=== PATIENT | female | born 1960 | race Caucasian/White ===

== ENCOUNTER 2020-10-15 13:01 | Outpatient (CLI) | payer OTHER | END 2020-10-15 13:02 | disposition home or self-care (01) | LOC: CSHMAMMO 13:01 | PROVIDERS: ATTEND Family Medicine | DX: Z12.31 Encounter for screening mammogram for malignant neoplasm of breast (principal) | CPT/HCPCS: 77063; 77067 ==

== ENCOUNTER 2021-08-13 12:38 | Inpatient (IN) | payer OTHER, SELFPAY ==
[2021-08-13 14:33] LABS: #Basophils 0.1 10x3/uL (0.0-0.2); #Eosinphils 0.1 10x3/uL (0.0-0.5); #Monocytes 0.6 10x3/uL (0.0-1.1); #Neutrophils 4.9 10x3/uL (1.5-8.4); %Basophils 0.8 % (0.0-2.0); %Eosinophils 1.2 % (0.0-6.0); %Monocytes 6.3 % (0.0-10.0); %Neutrophils 55.2 % (40.0-75.0); Mean Corpuscular HGB CONC 32.9 g/dL (32.0-36.0); Mean Corpuscular Hemoglobin 32.2 pg (27.0-33.0); Mean Corpuscular Volume 97.9 fl (81.6-98.3); Mean Platelet Volume 10.7 fl (7.4-10.4); Platelet Count 217 10x3/uL (150-450); RBC Distribution Width 13.5 % (11.5-14.5); Red Blood Cell (RBC) Count 4.66 10x6/uL (3.90-5.03); White Blood Cell (WBC) Count 8.8 10x3/uL (3.5-10.5)
[2021-08-13 14:51] LABS: ALT (SGPT) 23 U/L (8-55); AST (SGOT) 22 U/L (5-34); Albumin 4.2 g/dL (3.4-4.8); Alkaline Phosphatase 89 U/L (40-110); Anion Gap 15 mmol/L (10-20); BUN (Urea Nitrogen) 9 mg/dL (9.8-20.1); Bilirubin, Total 0.4 mg/dL (0.2-1.2); Calc. Creatinine Clearance 0 mL/min (70-130); Calcium 9.4 mg/dL (7.8-10.44); Carbon Dioxide 27 mmol/L (23-31); Chloride 102 mmol/L (98-107); Globulin 3.2 g/dL (2.4-3.5); Glucose 101 mg/dL (80-115); Potassium 4.2 mmol/L (3.5-5.1); Protein, Total 7.4 g/dL (5.8-8.1); Sodium 140 mmol/L (136-145)
[2021-08-13] MEDS ORDERED: Acetaminophen 325 MG TAB PO PRN (18:29)
[2021-08-13] MEDS ORDERED: Ondansetron PF 4 MG/2 ML Vial IVP PRN (18:29)
[2021-08-13] MEDS ORDERED: Ondansetron ODT 4 MG TAB PO PRN (18:29)
[2021-08-13] MEDS ORDERED: Acetaminophen 650 MG Suppository PR PRN (18:29)
[2021-08-13] MEDS ORDERED: Albuterol Sulfate 2.5 mg/3 ml Neb EZPAP PRN (18:40)
[2021-08-13] MEDS ORDERED: Dexamethasone 10 MG/ML VIAL ONE (19:12)
[2021-08-13 19:50] LABS: SARS-CoV-2 IgG Spike Ab Interp Reactive (NonReactive); SARS-CoV-2 IgG Spike Conc/Indx 1785.8 AU/mL (0.00-50.0)
[2021-08-13] MEDS ORDERED: REMDESIVIR 200 MG, Admixture Fee 1 EACH in Sodium Chloride 0.9% 250 ML 210 ML IV SCH (21:00)
[2021-08-13 22:04] VITALS: BMI 32.9
[2021-08-13] MEDS ORDERED: Ventolin HFA Inhaler 60 PUFF INHALER INH PRN ×2 (23:45→23:57)
[2021-08-14 04:25] LABS: #Monocytes 0.1 10x3/uL (0.0-1.1); #Neutrophils 5.8 10x3/uL (1.5-8.4); %Basophils 0.6 % (0.0-2.0); %Eosinophils 0.1 % (0.0-6.0); %Lymphocytes 14.8 % (18.0-47.0); %Monocytes 1.3 % (0.0-10.0); %Neutrophils 82.6 % (40.0-75.0); Hemoglobin 15.7 g/dL (12.0-15.5); Mean Corpuscular HGB CONC 33.2 g/dL (32.0-36.0); Mean Corpuscular Hemoglobin 32.8 pg (27.0-33.0); Mean Platelet Volume 10.9 fl (7.4-10.4); Platelet Count 223 10x3/uL (150-450); RBC Distribution Width 13.3 % (11.5-14.5); Red Blood Cell (RBC) Count 4.78 10x6/uL (3.90-5.03); White Blood Cell (WBC) Count 7.1 10x3/uL (3.5-10.5)
[2021-08-14 04:53] LABS: Anion Gap 16 mmol/L (10-20); BUN (Urea Nitrogen) 13 mg/dL (9.8-20.1); Calc. Creatinine Clearance 93 mL/min (70-130); Calcium 9.7 mg/dL (7.8-10.44); Carbon Dioxide 28 mmol/L (23-31); Chloride 101 mmol/L (98-107); Glucose 217 mg/dL (80-115); Potassium 4.7 mmol/L (3.5-5.1); Sodium 140 mmol/L (136-145)
[2021-08-14] MEDS: Ascorbic Acid 500 mg Chewable Tablet PO SCH (09:17)
[2021-08-14] MEDS: Zinc Sulfate 220 MG CAP PO SCH (09:17)
[2021-08-14] MEDS: Dexamethasone 4 MG TAB PO SCH (09:17)
[2021-08-14] MEDS: Famotidine 20 MG TAB PO SCH ×2 (09:17→20:17)
[2021-08-14] MEDS: Guaifenesin DM 100-10/5 ML UDCUP PO PRN (17:43)
[2021-08-14] MEDS: REMDESIVIR 100 MG, Admixture Fee 1 EACH in Sodium Chloride 0.9% 250 ML 230 ML IV SCH (20:29)
[2021-08-15] MEDS: Guaifenesin DM 100-10/5 ML UDCUP PO PRN ×3 (00:57→21:19)
[2021-08-15 05:35] LABS: Anion Gap 11 mmol/L (10-20); BUN (Urea Nitrogen) 15 mg/dL (9.8-20.1); Calc. Creatinine Clearance 112 mL/min (70-130); Carbon Dioxide 32 mmol/L (23-31); Chloride 104 mmol/L (98-107); Glucose 119 mg/dL (80-115); Potassium 4.7 mmol/L (3.5-5.1); Sodium 142 mmol/L (136-145)
[2021-08-15 05:53] LABS: #Monocytes 0.8 10x3/uL (0.0-1.1); #Neutrophils 8.9 10x3/uL (1.5-8.4); %Basophils 0.3 % (0.0-2.0); %Lymphocytes 20.5 % (18.0-47.0); %Monocytes 6.8 % (0.0-10.0); %Neutrophils 71.4 % (40.0-75.0); Hemoglobin 14.3 g/dL (12.0-15.5); Mean Corpuscular HGB CONC 32.6 g/dL (32.0-36.0); Mean Corpuscular Volume 101.4 fl (81.6-98.3); Mean Platelet Volume 10.7 fl (7.4-10.4); Platelet Count 219 10x3/uL (150-450); RBC Distribution Width 13.3 % (11.5-14.5); Red Blood Cell (RBC) Count 4.33 10x6/uL (3.90-5.03); White Blood Cell (WBC) Count 12.4 10x3/uL (3.5-10.5)
[2021-08-15] MEDS: Zinc Sulfate 220 MG CAP PO SCH (09:22)
[2021-08-15] MEDS: Dexamethasone 4 MG TAB PO SCH (09:22)
[2021-08-15] MEDS: Famotidine 20 MG TAB PO SCH ×2 (09:22→21:18)
[2021-08-15] MEDS: Enoxaparin Sodium 40 MG/0.4 ML SYRINGE SC SCH (09:22)
[2021-08-15] MEDS: Ascorbic Acid 500 mg Chewable Tablet PO SCH (09:22)
[2021-08-15] MEDS ORDERED: Acetaminophen 325 MG TAB PO PRN (09:30)
[2021-08-15] MEDS: Ipratropium Oral Inhaler INH SCH (19:29)
[2021-08-15] MEDS: REMDESIVIR 100 MG, Admixture Fee 1 EACH in Sodium Chloride 0.9% 250 ML 230 ML IV SCH (21:22)
[2021-08-16] MEDS: Ipratropium Oral Inhaler INH SCH ×4 (00:48→20:21)
[2021-08-16] MEDS: Dexamethasone 4 MG TAB PO SCH (08:26)
[2021-08-16] MEDS: Ascorbic Acid 500 mg Chewable Tablet PO SCH (08:26)
[2021-08-16] MEDS: Zinc Sulfate 220 MG CAP PO SCH (08:26)
[2021-08-16] MEDS: Enoxaparin Sodium 40 MG/0.4 ML SYRINGE SC SCH (08:26)
[2021-08-16] MEDS: Famotidine 20 MG TAB PO SCH ×2 (08:26→20:40)
[2021-08-16] MEDS: Guaifenesin DM 100-10/5 ML UDCUP PO PRN (15:04)
[2021-08-16] MEDS: REMDESIVIR 100 MG, Admixture Fee 1 EACH in Sodium Chloride 0.9% 250 ML 230 ML IV SCH (20:41)
[2021-08-17] MEDS: Ipratropium Oral Inhaler INH SCH ×4 (01:00→19:15)
[2021-08-17] MEDS: Guaifenesin DM 100-10/5 ML UDCUP PO PRN ×2 (01:26→19:41)
[2021-08-17] MEDS: Dexamethasone 4 MG TAB PO SCH (09:31)
[2021-08-17] MEDS: Ascorbic Acid 500 mg Chewable Tablet PO SCH (09:31)
[2021-08-17] MEDS: Zinc Sulfate 220 MG CAP PO SCH (09:32)
[2021-08-17] MEDS: Famotidine 20 MG TAB PO SCH ×2 (09:32→20:13)
[2021-08-17] MEDS: Enoxaparin Sodium 40 MG/0.4 ML SYRINGE SC SCH (09:32)
[2021-08-17] MEDS: REMDESIVIR 100 MG, Admixture Fee 1 EACH in Sodium Chloride 0.9% 250 ML 230 ML IV SCH (20:14)
[2021-08-18] MEDS: Ipratropium Oral Inhaler INH SCH ×3 (01:00→13:44)
[2021-08-18] MEDS: Ascorbic Acid 500 mg Chewable Tablet PO SCH (08:36)
[2021-08-18] MEDS: Zinc Sulfate 220 MG CAP PO SCH (08:36)
[2021-08-18] MEDS: Dexamethasone 4 MG TAB PO SCH (08:36)
[2021-08-18] MEDS: Enoxaparin Sodium 40 MG/0.4 ML SYRINGE SC SCH (08:36)
[2021-08-18] MEDS: Famotidine 20 MG TAB PO SCH (08:36)
[2021-08-18 12:14] VITALS: BP 148/76; TEMP 98.2
[2021-08-18] MEDS ORDERED: Dexamethasone 4 MG TAB PO SCH (21:00)
== END 2021-08-18 17:33 | disposition home or self-care (01) | DRG 177 ==
LOC: CSHERS 12:38 → UNDOADMIN 17:12 → CSHERHOLD 17:12 → CSHTELE 21:55
PROVIDERS: ADMIT Family Medicine; ATTEND Family Medicine
PROC: XW033E5 Introduction of Remdesivir Anti-infective into Peripheral Vein, Percutaneous Approach, New Technology Group 5 (ICD-10-PCS; principal; 2021-08-13)
PROC: 8E0ZXY6 Isolation (ICD-10-PCS; 2021-08-13)
DX: U07.1 COVID-19 (principal); J12.82 Pneumonia due to coronavirus disease 2019; J96.01 Acute respiratory failure with hypoxia; J45.20 Mild intermittent asthma, uncomplicated; I10 Essential (primary) hypertension; Z90.710 Acquired absence of both cervix and uterus; Z88.0 Allergy status to penicillin; Z88.5 Allergy status to narcotic agent; Z88.8 Allergy status to other drugs, medicaments and biological substances; Z79.899 Other long term (current) drug therapy
CPT/HCPCS: 36415; 71045; 80048; 80053; 84145; 85025; 85379; 86140; 86769; 87804; 93005; 94664; 94760; 96374; J0248; J1100; J1650; J7050; J8540

== ENCOUNTER 2022-02-22 18:37 | Inpatient (IN) | payer OTHER, SELFPAY ==
[~2022-02-22 18:37] MED LIST: Iopamidol 370 76% 100 ML VIAL ONE
[2022-02-22] MEDS ORDERED: methylPREDNISolone Sod Succ/PF 125 MG/2 ML VIAL ONE (19:11)
[2022-02-22] MEDS ORDERED: Enoxaparin Sodium 100 MG/ML SYRINGE ONE (19:11)
[2022-02-22 19:45] LABS: #Basophils 0.1 10x3/uL (0.0-0.2); #Eosinphils 0.1 10x3/uL (0.0-0.5); #Monocytes 0.7 10x3/uL (0.0-1.1); #Neutrophils 6.2 10x3/uL (1.5-8.4); %Basophils 0.7 % (0.0-2.0); %Lymphocytes 28.5 % (18.0-47.0); %Monocytes 6.9 % (0.0-10.0); %Neutrophils 62.4 % (40.0-75.0); Mean Corpuscular HGB CONC 32.9 g/dL (32.0-36.0); Mean Corpuscular Hemoglobin 32.8 pg (27.0-33.0); Mean Corpuscular Volume 99.8 fl (81.6-98.3); Mean Platelet Volume 10.7 fl (7.4-10.4); Platelet Count 218 10x3/uL (150-450); RBC Distribution Width 14.3 % (11.5-14.5); Red Blood Cell (RBC) Count 4.57 10x6/uL (3.90-5.03); White Blood Cell (WBC) Count 9.9 10x3/uL (3.5-10.5)
[2022-02-22 19:47] LABS: INR-International Normal Ratio 0.9; PTT 25.1 sec (22.0-33.0); Prothrombin Time 10.1 sec (9.5-12.1)
[2022-02-22 19:52] LABS: ALT (SGPT) 20 U/L (8-55); AST (SGOT) 19 U/L (5-34); Alkaline Phosphatase 87 U/L (40-110); Anion Gap 13 mmol/L (10-20); BUN (Urea Nitrogen) 18 mg/dL (9.8-20.1); Bilirubin, Total 0.3 mg/dL (0.2-1.2); Calc. Creatinine Clearance 0 mL/min (70-130); Calcium 9.4 mg/dL (7.8-10.44); Carbon Dioxide 27 mmol/L (23-31); Chloride 103 mmol/L (98-107); Estimated GFR 91; Glucose 94 mg/dL (80-115); Lipase 23 U/L (8-78); Potassium 4.2 mmol/L (3.5-5.1); Sodium 139 mmol/L (136-145)
[2022-02-22 20:43] LABS: Actual Bicarbonate (HCO3v) 28 mEq/L (22-28); Base Excess 0.3 mEq/L (-2.0 to +3.0); Calcium, Ionized (venous) 1.17 mmol/L (1.16-1.32); Chloride (VBG) 102 mmol/L (98-106); Critical Notified By: CP.PH; Hemoglobin (Hb) 16.3 g/dL (11.7-16.0); Potassium (VBG) 4.52 mmol/L (3.70-5.30); Puncture Site Other Site; Sodium 138.1 mmol/L (133-146); pH (venous) 7.33 (7.32-7.43)
[2022-02-22] MEDS ORDERED: Albuterol Sulfate 2.5 mg/3 ml Neb ONE (21:23)
[2022-02-22] MEDS ORDERED: Azithromycin 250 MG TAB ONE (21:23)
[2022-02-22] MEDS ORDERED: cefTRIAXone\\ROCEPHIN 1 GM VIAL ONE (21:23)
[2022-02-22 22:02] LABS: SARS-CoV-2 NAA Rapid Test Not Detected (NotDetected)
[2022-02-22 22:15] LABS: Bilirubin Neg (Negative); Blood, Urine 50 (Negative); Clarity Slightly Cloudy (Clear); Glucose, Urine (Dipstick) Normal (Negative); Ketone, Urine Negative (Negative); Leukocyte Negative (Negative); Nitrite Positive (Negative); Protein, Urine (Dipstick) 15 mg/dl (Neg-Trace); Specific Gravity, Urine 1.015 (1.002-1.036); Urobilinogen Normal mg/dL (Less than 2)
[2022-02-22 22:23] LABS: Bacteria/HPF 3+ HPF (None Seen); Mucous/LPF None Seen LPF (<2+); RBC/HPF 0-3 HPF (0-3); Squamous Epithelial 0-3 HPF (0-3); WBC/HPF 0-3 HPF (0-3)
[2022-02-23] MEDS ORDERED: Acetaminophen 325 MG TAB PO PRN (01:41)
[2022-02-23] MEDS ORDERED: Senokot S 8.6-50 MG TAB PO PRN (01:41)
[2022-02-23] MEDS ORDERED: Calcium Carbonate 500 MG ChewTAB PO PRN (01:41)
[2022-02-23] MEDS ORDERED: Ondansetron PF 4 MG/2 ML Vial IVP PRN (01:41)
[2022-02-23] MEDS ORDERED: Guaifenesin DM 100-10/5 ML UDCUP PO PRN (01:41)
[2022-02-23] MEDS ORDERED: Magnesium 2 GM/50 ML(in water) 2 GM in Premix Bag 1 BAG IVPB SCH (02:00)
[2022-02-23] MEDS ORDERED: methylPREDNISolone Sod Succ 40 MG VIAL ONE ×2 (02:03→07:24)
[2022-02-23] MEDS ORDERED: Magnesium 2 GM/50 ML BAG (IN WATER) ONE (02:04)
[2022-02-23] MEDS: methylPREDNISolone Sod Succ 40 MG VIAL IVP SCH ×4 (02:10→20:45)
[2022-02-23 04:12] LABS: Anion Gap 16 mmol/L (10-20); BUN (Urea Nitrogen) 15 mg/dL (9.8-20.1); Calc. Creatinine Clearance 0 mL/min (70-130); Calcium 9.8 mg/dL (7.8-10.44); Carbon Dioxide 27 mmol/L (23-31); Chloride 101 mmol/L (98-107); Estimated GFR 89; Glucose 255 mg/dL (80-115); Potassium 4.7 mmol/L (3.5-5.1); Sodium 139 mmol/L (136-145)
[2022-02-23] MEDS ORDERED: Enoxaparin Sodium 40 MG/0.4 ML SYRINGE ONE (07:24)
[2022-02-23] MEDS: Acyclovir 400 mg Tablet PO SCH ×3 (07:41→20:47)
[2022-02-23] MEDS: guaiFENesin ER 600 MG TAB PO SCH ×2 (07:41→20:47)
[2022-02-23] MEDS: Nicotine 21 MG PATCH TD SCH (07:41)
[2022-02-23] MEDS: Famotidine 20 MG TAB PO SCH ×2 (07:41→20:47)
[2022-02-23] MEDS: Enoxaparin Sodium 40 MG/0.4 ML SYRINGE SC SCH (07:41)
[2022-02-23] MEDS: Acetylcysteine 800 MG/4 ML VIAL PO SCH ×2 (07:41→21:00)
[2022-02-23 07:58] VITALS: BMI 30.6
[2022-02-23] MEDS: Mometasone/Formoterol 200/5 60 PUFF INH SCH ×2 (10:54→20:15)
[2022-02-23 19:32] LABS: Hemoglobin A1c 5.9 % (4.0-6.0)
[2022-02-23] MEDS: cefTRIAXone\\ROCEPHIN 1 GM in Sodium Chloride 0.9% 100 ML IVPB SCH (20:45)
[2022-02-24] MEDS: methylPREDNISolone Sod Succ 40 MG VIAL IVP SCH ×4 (03:00→20:58)
[2022-02-24] MEDS: Famotidine 20 MG TAB PO SCH ×2 (08:50→20:58)
[2022-02-24] MEDS: Nicotine 21 MG PATCH TD SCH (08:50)
[2022-02-24] MEDS: guaiFENesin ER 600 MG TAB PO SCH ×2 (08:50→20:58)
[2022-02-24] MEDS: Enoxaparin Sodium 40 MG/0.4 ML SYRINGE SC SCH (08:53)
[2022-02-24] MEDS: Acetylcysteine 800 MG/4 ML VIAL PO SCH ×2 (08:56→21:00)
[2022-02-24] MEDS: Acyclovir 400 mg Tablet PO SCH ×3 (08:56→21:08)
[2022-02-24] MEDS: Mometasone/Formoterol 200/5 60 PUFF INH SCH ×2 (09:48→19:56)
[2022-02-24] MEDS: cefTRIAXone\\ROCEPHIN 1 GM in Sodium Chloride 0.9% 100 ML IVPB SCH (20:59)
[2022-02-24] MEDS: Azithromycin 500 MG in Sodium Chloride 0.9% 250 ML 250 ML IVPB SCH (21:08)
[2022-02-25] MEDS: methylPREDNISolone Sod Succ 40 MG VIAL IVP SCH ×4 (02:43→21:27)
[2022-02-25 06:08] LABS: Anion Gap 13 mmol/L (10-20); BUN (Urea Nitrogen) 20 mg/dL (9.8-20.1); Calc. Creatinine Clearance 105 mL/min (70-130); Calcium 9.4 mg/dL (7.8-10.44); Carbon Dioxide 32 mmol/L (23-31); Chloride 101 mmol/L (98-107); Estimated GFR 98; Glucose 151 mg/dL (80-115); Potassium 4.5 mmol/L (3.5-5.1); Sodium 141 mmol/L (136-145)
[2022-02-25] MEDS: Lidocaine 5% Patch TD SCH (09:01)
[2022-02-25] MEDS: Famotidine 20 MG TAB PO SCH ×2 (09:01→21:29)
[2022-02-25] MEDS: Enoxaparin Sodium 40 MG/0.4 ML SYRINGE SC SCH (09:01)
[2022-02-25] MEDS: guaiFENesin ER 600 MG TAB PO SCH ×2 (09:02→21:28)
[2022-02-25] MEDS: Amlodipine 5 MG TAB PO SCH (09:02)
[2022-02-25] MEDS: buPROPion 75 MG TAB PO SCH (09:13)
[2022-02-25] MEDS: Nicotine 21 MG PATCH TD SCH (09:14)
[2022-02-25] MEDS: Acetylcysteine 800 MG/4 ML VIAL PO SCH ×2 (10:14→21:27)
[2022-02-25] MEDS: Acyclovir 400 mg Tablet PO SCH ×3 (10:20→21:28)
[2022-02-25] MEDS: Mometasone/Formoterol 200/5 60 PUFF INH SCH ×2 (12:08→19:45)
[2022-02-25] MEDS ORDERED: Lisinopril 5 MG TAB PO SCH (18:00)
[2022-02-25] MEDS: cefTRIAXone\\ROCEPHIN 1 GM in Sodium Chloride 0.9% 100 ML IVPB SCH (21:28)
[2022-02-25] MEDS: Azithromycin 500 MG in Sodium Chloride 0.9% 250 ML 250 ML IVPB SCH (21:28)
[2022-02-25] MEDS: Transdermal Patch Removal TOP SCH (21:54)
[2022-02-26] MEDS: methylPREDNISolone Sod Succ 40 MG VIAL IVP SCH ×3 (01:31→20:31)
[2022-02-26 04:49] LABS: Anion Gap 12 mmol/L (10-20); BUN (Urea Nitrogen) 16 mg/dL (9.8-20.1); Calc. Creatinine Clearance 109 mL/min (70-130); Carbon Dioxide 30 mmol/L (23-31); Chloride 101 mmol/L (98-107); Estimated GFR 99; Glucose 177 mg/dL (80-115); Potassium 4.3 mmol/L (3.5-5.1); Sodium 139 mmol/L (136-145)
[2022-02-26] MEDS: buPROPion 75 MG TAB PO SCH (08:58)
[2022-02-26] MEDS: Acetylcysteine 800 MG/4 ML VIAL PO SCH ×2 (08:59→20:44)
[2022-02-26] MEDS: Acyclovir 400 mg Tablet PO SCH ×3 (08:59→20:30)
[2022-02-26] MEDS: Lisinopril 5 MG TAB PO SCH (08:59)
[2022-02-26] MEDS: Amlodipine 5 MG TAB PO SCH (08:59)
[2022-02-26] MEDS: Famotidine 20 MG TAB PO SCH ×2 (08:59→20:30)
[2022-02-26] MEDS: guaiFENesin ER 600 MG TAB PO SCH ×2 (09:00→20:30)
[2022-02-26] MEDS: Lidocaine 5% Patch TD SCH (09:00)
[2022-02-26] MEDS: Enoxaparin Sodium 40 MG/0.4 ML SYRINGE SC SCH (09:00)
[2022-02-26] MEDS: Nicotine 21 MG PATCH TD SCH (09:00)
[2022-02-26] MEDS: Mometasone/Formoterol 200/5 60 PUFF INH SCH ×2 (09:06→20:41)
[2022-02-26] MEDS: Azithromycin 500 MG in Sodium Chloride 0.9% 250 ML 250 ML IVPB SCH (20:29)
[2022-02-26] MEDS: cefTRIAXone\\ROCEPHIN 1 GM in Sodium Chloride 0.9% 100 ML IVPB SCH (20:40)
[2022-02-26] MEDS: Transdermal Patch Removal TOP SCH (20:44)
[2022-02-27] MEDS: Acyclovir 400 mg Tablet PO SCH ×3 (08:15→20:23)
[2022-02-27] MEDS: Lisinopril 5 MG TAB PO SCH ×2 (08:15→20:22)
[2022-02-27] MEDS: buPROPion 75 MG TAB PO SCH (08:15)
[2022-02-27] MEDS: Famotidine 20 MG TAB PO SCH ×2 (08:16→20:22)
[2022-02-27] MEDS: Amlodipine 5 MG TAB PO SCH (08:16)
[2022-02-27] MEDS: Nicotine 21 MG PATCH TD SCH (08:16)
[2022-02-27] MEDS: Enoxaparin Sodium 40 MG/0.4 ML SYRINGE SC SCH (08:16)
[2022-02-27] MEDS: Lidocaine 5% Patch TD SCH (08:16)
[2022-02-27] MEDS: guaiFENesin ER 600 MG TAB PO SCH ×2 (08:16→20:22)
[2022-02-27] MEDS: methylPREDNISolone Sod Succ 40 MG VIAL IVP SCH ×2 (08:17→20:22)
[2022-02-27] MEDS: Acetylcysteine 800 MG/4 ML VIAL PO SCH ×2 (08:17→20:23)
[2022-02-27] MEDS: Mometasone/Formoterol 200/5 60 PUFF INH SCH ×2 (09:21→19:30)
[2022-02-27] MEDS ORDERED: hydrALAZINE 20 MG/ML VIAL SLOW IVP PRN (13:38)
[2022-02-27] MEDS: cefTRIAXone\\ROCEPHIN 1 GM in Sodium Chloride 0.9% 100 ML IVPB SCH (20:21)
[2022-02-27] MEDS: Azithromycin 500 MG in Sodium Chloride 0.9% 250 ML 250 ML IVPB SCH (20:21)
[2022-02-27] MEDS: Transdermal Patch Removal TOP SCH (20:33)
[2022-02-28] MEDS: Mometasone/Formoterol 200/5 60 PUFF INH SCH (07:12)
[2022-02-28] MEDS ORDERED: buPROPion 75 MG TAB PO SCH (09:00)
[2022-02-28] MEDS: Lidocaine 5% Patch TD SCH (10:23)
[2022-02-28] MEDS: Acetylcysteine 800 MG/4 ML VIAL PO SCH (10:24)
[2022-02-28] MEDS: methylPREDNISolone Sod Succ 40 MG VIAL IVP SCH (10:25)
[2022-02-28] MEDS: Enoxaparin Sodium 40 MG/0.4 ML SYRINGE SC SCH (10:25)
[2022-02-28] MEDS: Famotidine 20 MG TAB PO SCH (10:26)
[2022-02-28] MEDS: Acyclovir 400 mg Tablet PO SCH (10:26)
[2022-02-28] MEDS: Lisinopril 5 MG TAB PO SCH (10:26)
[2022-02-28] MEDS: Amlodipine 5 MG TAB PO SCH (10:26)
[2022-02-28] MEDS: guaiFENesin ER 600 MG TAB PO SCH (10:26)
[2022-02-28] MEDS: Nicotine 21 MG PATCH TD SCH (10:27)
[2022-02-28 12:45] VITALS: BP 165/95; TEMP 97.6
== END 2022-02-28 14:59 | disposition home health service (06) | DRG 189 ==
LOC: CSHERS 18:37 → CSHERHOLD 22:35 → CSHIMCU 02-23 09:50 → CSHTELE 02-24 18:41
PROVIDERS: ADMIT Emergency Medicine; ATTEND Family Medicine
DX: J96.01 Acute respiratory failure with hypoxia (principal); R65.10 Systemic inflammatory response syndrome (SIRS) of non-infectious origin without acute organ dysfunction; J43.2 Centrilobular emphysema; J96.02 Acute respiratory failure with hypercapnia; I10 Essential (primary) hypertension; U09.9 Post COVID-19 condition, unspecified; F17.210 Nicotine dependence, cigarettes, uncomplicated; B00.9 Herpesviral infection, unspecified; J45.20 Mild intermittent asthma, uncomplicated; E66.01 Morbid (severe) obesity due to excess calories; I27.20 Pulmonary hypertension, unspecified; Z20.822 Contact with and (suspected) exposure to COVID-19; Z71.6 Tobacco abuse counseling; Z98.890 Other specified postprocedural states; Z68.30 Body mass index [BMI] 30.0-30.9, adult; Z88.0 Allergy status to penicillin; Z88.2 Allergy status to sulfonamides; Z88.5 Allergy status to narcotic agent; Z88.6 Allergy status to analgesic agent; Z87.440 Personal history of urinary (tract) infections; Z90.710 Acquired absence of both cervix and uterus; Z79.51 Long term (current) use of inhaled steroids; Z79.899 Other long term (current) drug therapy
CPT/HCPCS: 36415; 36416; 71045; 71275; 80048; 80053; 81003; 81015; 82805; 83036; 83605; 83690; 83735; 83880; 84145; 84443; 84484; 85025; 85610; 85730; 86850; 86900; 86901; 93005; 93306; 94664; 94760; 94799; 96365; 96372; 96375; J0456; J0696; J1650; J2920; J2930; J3475; J3490; J7050; J7611; J7620; Q9967; U0002

== ENCOUNTER 2022-08-22 16:37 | Inpatient (IN) | payer OTHER ==
[2022-08-22] MEDS ORDERED: Ipratropium/Albuterol 3 ML NEB ONE (17:18)
[2022-08-22] MEDS ORDERED: Dexamethasone 10 MG/ML VIAL ONE (17:21)
[2022-08-22] MEDS ORDERED: Magnesium 2 GM/50 ML BAG (IN WATER) ONE (17:21)
[2022-08-22] MEDS ORDERED: Lorazepam 2 MG/ML VIAL ONE (17:34)
[2022-08-22 17:41] LABS: #Basophils 0.1 10x3/uL (0.0-0.2); #Neutrophils 6.1 10x3/uL (1.5-8.4); %Basophils 0.5 % (0.0-2.0); %Eosinophils 0.1 % (0.0-6.0); %Lymphocytes 23.1 % (18.0-47.0); %Monocytes 10.8 % (0.0-10.0); Hemoglobin 16.5 g/dL (12.0-15.5); Mean Corpuscular HGB CONC 34.1 g/dL (32.0-36.0); Mean Corpuscular Hemoglobin 33.5 pg (27.0-33.0); Mean Corpuscular Volume 98.2 fl (81.6-98.3); Mean Platelet Volume 10.6 fl (7.4-10.4); Platelet Count 251 10x3/uL (150-450); RBC Distribution Width 14.8 % (11.5-14.5); Red Blood Cell (RBC) Count 4.93 10x6/uL (3.90-5.03); White Blood Cell (WBC) Count 9.4 10x3/uL (3.5-10.5)
[2022-08-22 17:54] LABS: Actual Bicarbonate (HCO3a) 29.7 mEq/L (22-28); Base Excess (BEa) 2.5 mEq/L (-2.0 to +3.0); CO2 Tension 55.7 mmHg (35.0-45.0); Calcium, Ionized (arterial) 1.25 mmol/L (1.12-1.30); Carboxyhemoglobin (COHb) 5.1 gm% (0.0-3.0); Critical Notified Whom: SPOHN; Hemoglobin (Hb) 16.2 g/dL (12.0-16.0); O2 Tension (PaO2), arterial 70.4 mmHg (> 80.0); Potassium - ABG Lab 3.7 mmol/L (3.70-5.30); Puncture Site RRA; pH, Arterial 7.35 (7.35-7.45)
[2022-08-22 17:56] LABS: ALV-art Gradient 109.525 mmHg (0-20)
[2022-08-22 18:01] LABS: ALT (SGPT) 20 U/L (8-55); AST (SGOT) 22 U/L (5-34); Albumin 4.2 g/dL (3.4-4.8); Alkaline Phosphatase 98 U/L (40-110); Anion Gap 15 mmol/L (10-20); BUN (Urea Nitrogen) 11 mg/dL (9.8-20.1); Bilirubin, Total 0.4 mg/dL (0.2-1.2); CK (CPK) 60 U/L (29-168); Calc. Creatinine Clearance 0 mL/min (70-130); Calcium 9.7 mg/dL (7.8-10.44); Carbon Dioxide 29 mmol/L (23-31); Chloride 96 mmol/L (98-107); Estimated GFR 91; Globulin 3.1 g/dL (2.4-3.5); Glucose 121 mg/dL (80-115); Lipase 17 U/L (8-78); Potassium 3.8 mmol/L (3.5-5.1); Protein, Total 7.3 g/dL (5.8-8.1); Sodium 136 mmol/L (136-145)
[2022-08-22 18:28] LABS: SARS-CoV-2 NAA Rapid Test Not Detected (NotDetected)
[2022-08-22] MEDS ORDERED: Arformoterol 15 MCG/2 ML NEB NEB SCH (22:00)
[2022-08-22] MEDS: cefTRIAXone\\ROCEPHIN 2 GM in Sodium Chloride 0.9% 100 ML IVPB SCH (22:49)
[2022-08-22] MEDS: Sodium Chloride 0.9% 1,000 ML IV SCH (22:49)
[2022-08-22 22:54] LABS: Troponin I Less than 0.010 ng/mL (< 0.028)
[2022-08-22 23:11] LABS: Magnesium 2.5 mg/dL (1.6-2.6)
[2022-08-22] MEDS: Arformoterol 15 MCG/2 ML NEB NEB SCH (23:40)
[2022-08-22] MEDS: Ipratropium/Albuterol 3 ML NEB NEB SCH (23:44)
[2022-08-23] MEDS: Azithromycin 500 MG in Sodium Chloride 0.9% 250 ML 250 ML IVPB SCH ×2 (00:16→23:05)
[2022-08-23] MEDS: methylPREDNISolone Sod Succ 40 MG VIAL IVP SCH ×5 (00:16→23:05)
[2022-08-23 01:18] LABS: Troponin I Less than 0.010 ng/mL (< 0.028)
[2022-08-23] MEDS: Guaifenesin DM 100-10/5 ML UDCUP PO PRN ×3 (03:31→21:20)
[2022-08-23 03:53] LABS: #Basophils 0.1 10x3/uL (0.0-0.2); #Monocytes 0.2 10x3/uL (0.0-1.1); #Neutrophils 7.3 10x3/uL (1.5-8.4); %Basophils 0.6 % (0.0-2.0); %Lymphocytes 8.9 % (18.0-47.0); %Monocytes 1.9 % (0.0-10.0); %Neutrophils 86.7 % (40.0-75.0); Hemoglobin 15.5 g/dL (12.0-15.5); Mean Corpuscular HGB CONC 32.7 g/dL (32.0-36.0); Mean Corpuscular Hemoglobin 32.8 pg (27.0-33.0); Mean Corpuscular Volume 100.4 fl (81.6-98.3); Mean Platelet Volume 9.9 fl (7.4-10.4); Platelet Count 234 10x3/uL (150-450); RBC Distribution Width 14.8 % (11.5-14.5); Red Blood Cell (RBC) Count 4.72 10x6/uL (3.90-5.03); White Blood Cell (WBC) Count 8.4 10x3/uL (3.5-10.5)
[2022-08-23 04:06] LABS: Anion Gap 12 mmol/L (10-20); BUN (Urea Nitrogen) 11 mg/dL (9.8-20.1); Calc. Creatinine Clearance 109 mL/min (70-130); Calcium 9.1 mg/dL (7.8-10.44); Carbon Dioxide 31 mmol/L (23-31); Chloride 101 mmol/L (98-107); Estimated GFR 93; Glucose 146 mg/dL (80-115); Potassium 4.5 mmol/L (3.5-5.1); Sodium 139 mmol/L (136-145)
[2022-08-23] MEDS: Ipratropium/Albuterol 3 ML NEB NEB SCH ×6 (04:19→23:51)
[2022-08-23] MEDS: Budesonide 0.5 MG/2 ML NEB NEB SCH ×2 (07:10→20:08)
[2022-08-23] MEDS: Arformoterol 15 MCG/2 ML NEB NEB SCH ×2 (07:18→20:06)
[2022-08-23] MEDS ORDERED: FLU VACC QS2022-23(6MOS UP)/PF 60 MCG/0.5 ML SYRINGE IM ONE (09:00)
[2022-08-23] MEDS: Sodium Chloride 0.9% 1,000 ML IV SCH (12:11)
[2022-08-23] MEDS ORDERED: Sodium Chloride 0.9% 500 ML IV SCH (18:30)
[2022-08-23] MEDS: buPROPion 75 MG TAB PO SCH (21:12)
[2022-08-23] MEDS: cefTRIAXone\\ROCEPHIN 2 GM in Sodium Chloride 0.9% 100 ML IVPB SCH (21:12)
[2022-08-23] MEDS ORDERED: Sodium Chloride 0.9% 250 ML 250 ML ONE (23:04)
[2022-08-24] MEDS: Ipratropium/Albuterol 3 ML NEB NEB SCH ×6 (04:00→22:13)
[2022-08-24] MEDS: methylPREDNISolone Sod Succ 40 MG VIAL IVP SCH ×4 (06:20→23:34)
[2022-08-24] MEDS: Budesonide 0.5 MG/2 ML NEB NEB SCH ×2 (06:30→20:44)
[2022-08-24] MEDS: Arformoterol 15 MCG/2 ML NEB NEB SCH ×2 (06:30→20:47)
[2022-08-24] MEDS: Amlodipine 5 MG TAB PO SCH (07:46)
[2022-08-24] MEDS: Guaifenesin DM 100-10/5 ML UDCUP PO PRN (07:46)
[2022-08-24] MEDS ORDERED: Acetaminophen 325 MG TAB PO PRN (07:49)
[2022-08-24] MEDS ORDERED: D5 1/2 NS w/20 mEq KCL 1,000 ML IV SCH (08:00)
[2022-08-24] MEDS: buPROPion 75 MG TAB PO SCH ×2 (08:22→20:21)
[2022-08-24] MEDS ORDERED: Amlodipine 5 MG TAB PO PRN (08:30)
[2022-08-24] MEDS ORDERED: Ipratropium/Albuterol 3 ML NEB NEB PRN (08:30)
[2022-08-24] MEDS ORDERED: Acetaminophen 325 MG TAB ONE (08:36)
[2022-08-24] MEDS: D5 1/2 NS w/20 mEq KCL 1,000 ML IV SCH (08:41)
[2022-08-24 09:05] LABS: ALT (SGPT) 30 U/L (8-55); AST (SGOT) 24 U/L (5-34); Albumin 3.6 g/dL (3.4-4.8); Alkaline Phosphatase 75 U/L (40-110); Anion Gap 10 mmol/L (10-20); BUN (Urea Nitrogen) 16 mg/dL (9.8-20.1); Bilirubin, Total 0.2 mg/dL (0.2-1.2); Calc. Creatinine Clearance 124 mL/min (70-130); Calcium 8.6 mg/dL (7.8-10.44); Carbon Dioxide 33 mmol/L (23-31); Chloride 101 mmol/L (98-107); Estimated GFR 99; Globulin 2.9 g/dL (2.4-3.5); Glucose 144 mg/dL (80-115); Magnesium 2.2 mg/dL (1.6-2.6); Phosphorus 2.8 mg/dL (2.3-4.7); Potassium 4.5 mmol/L (3.5-5.1); Protein, Total 6.5 g/dL (5.8-8.1); Sodium 139 mmol/L (136-145)
[2022-08-24] MEDS: Azithromycin 250 MG TAB PO SCH (09:15)
[2022-08-24] MEDS ORDERED: Senokot S 8.6-50 MG TAB PO SCH (16:00)
[2022-08-24] MEDS ORDERED: Mometasone/Formoterol 200/5 60 PUFF INH SCH (18:30)
[2022-08-24] MEDS: Cyanocobalamin (Vitamin B-12) 1,000 MCG TAB PO SCH (20:21)
[2022-08-24] MEDS: cefTRIAXone\\ROCEPHIN 2 GM in Sodium Chloride 0.9% 100 ML IVPB SCH (22:30)
[2022-08-25] MEDS: Ipratropium/Albuterol 3 ML NEB NEB SCH ×6 (02:08→22:30)
[2022-08-25 05:47] LABS: #Basophils 0.1 10x3/uL (0.0-0.2); #Monocytes 0.5 10x3/uL (0.0-1.1); #Neutrophils 8.8 10x3/uL (1.5-8.4); %Basophils 0.5 % (0.0-2.0); %Lymphocytes 12.1 % (18.0-47.0); %Monocytes 4.9 % (0.0-10.0); %Neutrophils 80.6 % (40.0-75.0); Hemoglobin 14.6 g/dL (12.0-15.5); Mean Corpuscular HGB CONC 32.7 g/dL (32.0-36.0); Mean Corpuscular Hemoglobin 33.7 pg (27.0-33.0); Mean Platelet Volume 10.2 fl (7.4-10.4); Platelet Count 186 10x3/uL (150-450); RBC Distribution Width 14.6 % (11.5-14.5); Red Blood Cell (RBC) Count 4.33 10x6/uL (3.90-5.03)
[2022-08-25 05:52] LABS: Anion Gap 14 mmol/L (10-20); BUN (Urea Nitrogen) 14 mg/dL (9.8-20.1); Calc. Creatinine Clearance 127 mL/min (70-130); Calcium 9.4 mg/dL (7.8-10.44); Carbon Dioxide 35 mmol/L (23-31); Chloride 94 mmol/L (98-107); Estimated GFR 99; Glucose 149 mg/dL (80-115); Potassium 4.9 mmol/L (3.5-5.1); Sodium 138 mmol/L (136-145)
[2022-08-25] MEDS: Budesonide 0.5 MG/2 ML NEB NEB SCH ×2 (07:00→19:50)
[2022-08-25] MEDS: Arformoterol 15 MCG/2 ML NEB NEB SCH ×2 (07:15→21:51)
[2022-08-25] MEDS: Amlodipine 5 MG TAB PO SCH (10:43)
[2022-08-25] MEDS: Azithromycin 250 MG TAB PO SCH (10:44)
[2022-08-25] MEDS: Senokot S 8.6-50 MG TAB PO SCH (10:45)
[2022-08-25] MEDS: predniSONE 20 MG TAB PO SCH ×2 (10:46→18:39)
[2022-08-25] MEDS: buPROPion 75 MG TAB PO SCH ×2 (10:48→21:35)
[2022-08-25] MEDS: D5 1/2 NS w/20 mEq KCL 1,000 ML IV SCH (12:28)
[2022-08-25] MEDS ORDERED: Furosemide 40 MG TAB PO SCH (15:00)
[2022-08-25] MEDS ORDERED: Pregabalin 50 MG CAP PO SCH (15:00)
[2022-08-25] MEDS: Cyanocobalamin (Vitamin B-12) 1,000 MCG TAB PO SCH (21:39)
[2022-08-25] MEDS: cefTRIAXone\\ROCEPHIN 2 GM in Sodium Chloride 0.9% 100 ML IVPB SCH (21:40)
[2022-08-26] MEDS: Ipratropium/Albuterol 3 ML NEB NEB SCH ×5 (03:22→19:20)
[2022-08-26] MEDS ORDERED: Furosemide 20 MG/2 ML VIAL SLOW IVP SCH (06:00)
[2022-08-26 06:22] LABS: BUN (Urea Nitrogen) 17 mg/dL (9.8-20.1); Calc. Creatinine Clearance 123 mL/min (70-130); Calcium 9.9 mg/dL (7.8-10.44); Estimated GFR 98; Glucose 79 mg/dL (80-115)
[2022-08-26 06:24] LABS: Hemoglobin 15.5 g/dL (12.0-15.5); Mean Corpuscular HGB CONC 33.2 g/dL (32.0-36.0); Mean Corpuscular Hemoglobin 33.3 pg (27.0-33.0); Mean Corpuscular Volume 100.2 fl (81.6-98.3); Mean Platelet Volume 9.8 fl (7.4-10.4); Platelet Count 207 10x3/uL (150-450); RBC Distribution Width 14.6 % (11.5-14.5); Red Blood Cell (RBC) Count 4.66 10x6/uL (3.90-5.03); White Blood Cell (WBC) Count 11.5 10x3/uL (3.5-10.5)
[2022-08-26 06:29] LABS: Anion Gap 18 mmol/L (10-20); Carbon Dioxide 39 mmol/L (23-31); Chloride 88 mmol/L (98-107); Potassium 3.9 mmol/L (3.5-5.1); Sodium 141 mmol/L (136-145)
[2022-08-26 06:37] LABS: MDiff Complete? YES
[2022-08-26 06:57] LABS: Eosinophils 1 % (0-10); Lymphocytes 22 % (21-51); Monocytes 11 % (0-10); Neutrophil 57 % (42-75); Reactive Lymphocytes 9 % (0-10)
[2022-08-26 06:58] LABS: Platelet Morphology Comment Appears Adequate; RBC Morphology Normal
[2022-08-26] MEDS ORDERED: Furosemide 40 MG TAB PO SCH ×2 (07:30→09:00)
[2022-08-26] MEDS: Budesonide 0.5 MG/2 ML NEB NEB SCH ×2 (07:35→19:34)
[2022-08-26] MEDS: Arformoterol 15 MCG/2 ML NEB NEB SCH ×2 (09:40→19:27)
[2022-08-26] MEDS: Azithromycin 250 MG TAB PO SCH (10:21)
[2022-08-26] MEDS: Amlodipine 5 MG TAB PO SCH (10:21)
[2022-08-26] MEDS: Guaifenesin DM 100-10/5 ML UDCUP PO PRN (10:21)
[2022-08-26] MEDS: buPROPion 75 MG TAB PO SCH (10:23)
[2022-08-26] MEDS: predniSONE 20 MG TAB PO SCH ×2 (10:23→17:35)
[2022-08-26] MEDS: Senokot S 8.6-50 MG TAB PO SCH (10:24)
[2022-08-26 15:13] VITALS: BMI 33.2
[2022-08-26 18:45] VITALS: BP 121/71; TEMP 97.1
[2022-08-26] MEDS ORDERED: Doxycycline 100 MG CAP PO SCH (21:00)
== END 2022-08-26 20:00 | disposition home or self-care (01) | DRG 291 ==
LOC: CSHERS 16:37 → CSHICU 21:55 → CSHTELE 08-24 16:28
PROVIDERS: ADMIT Family Medicine; ATTEND Internal Medicine
DX: I11.0 Hypertensive heart disease with heart failure (principal); G93.41 Metabolic encephalopathy; J96.21 Acute and chronic respiratory failure with hypoxia; I50.33 Acute on chronic diastolic (congestive) heart failure; J96.22 Acute and chronic respiratory failure with hypercapnia; J44.1 Chronic obstructive pulmonary disease with (acute) exacerbation; D75.89 Other specified diseases of blood and blood-forming organs; E66.9 Obesity, unspecified; Z87.891 Personal history of nicotine dependence; Z20.822 Contact with and (suspected) exposure to COVID-19; Z99.81 Dependence on supplemental oxygen; Z88.5 Allergy status to narcotic agent; Z88.0 Allergy status to penicillin; Z88.2 Allergy status to sulfonamides; Z88.6 Allergy status to analgesic agent; Z79.899 Other long term (current) drug therapy; Z79.51 Long term (current) use of inhaled steroids; Z90.710 Acquired absence of both cervix and uterus; Z98.890 Other specified postprocedural states; Z68.34 Body mass index [BMI] 34.0-34.9, adult
CPT/HCPCS: 36415; 36416; 36600; 71045; 80048; 80053; 82550; 82805; 83605; 83690; 83735; 83880; 84100; 84484; 85025; 87040; 93005; 93010; 94640; 94660; 94760; 96365; 96366; 96367; 96375; J0456; J0696; J1100; J1650; J1940; J1956; J2060; J2920; J3475; J3480; J3490; J7030; J7050; J7512; J7611; J7620; J7626

== ENCOUNTER 2023-11-27 09:24 | Inpatient (IN) | payer BC, OTHER ==
[2023-11-27] MEDS ORDERED: cefTRIAXone (ROCEPHIN) 1 GM VIAL ONE (09:53)
[2023-11-27] MEDS ORDERED: Azithromycin 500 MG VIAL ONE (09:53)
[2023-11-27] MEDS ORDERED: Acetaminophen 500 MG TAB ONE (10:17)
[2023-11-27] MEDS ORDERED: Ipratropium/Albuterol 3 ML NEB ONE (10:33)
[2023-11-27 10:53] LABS: #Basophils 0.04 10x3/uL (0.0-0.2); #Eosinphils 0.02 10x3/uL (0.0-0.5); #Monocytes 0.68 10x3/uL (0.0-1.1); %Basophils 0.3 % (0.0-2.0); %Eosinophils 0.1 % (0.0-6.0); %Lymphocytes 10.4 % (18.0-47.0); %Monocytes 4.6 % (0.0-10.0); %Neutrophils 84.1 % (40.0-75.0); Hematocrit 42.8 % (34.9-44.5); Hemoglobin 14.4 g/dL (12.0-15.5); Mean Corpuscular HGB CONC 33.6 g/dL (32.0-36.0); Mean Corpuscular Hemoglobin 34.9 pg (27.0-33.0); Mean Corpuscular Volume 103.6 fl (81.6-98.3); Mean Platelet Volume 10.5 fl (7.4-10.4); Platelet Count 191 10x3/uL (150-450); Red Blood Cell (RBC) Count 4.13 10x6/uL (3.90-5.03); White Blood Cell (WBC) Count 14.9 10x3/uL (3.5-10.5)
[2023-11-27 10:57] LABS: ALT (SGPT) 25 U/L (8-55); AST (SGOT) 29 U/L (5-34); Albumin 3.4 g/dL (3.4-4.8); Alkaline Phosphatase 92 U/L (40-110); Anion Gap 13 mmol/L (10-20); BUN (Urea Nitrogen) 6 mg/dL (9.8-20.1); Bilirubin, Total 0.8 mg/dL (0.2-1.2); Calc. Creatinine Clearance 0 mL/min (70-130); Calcium 8.4 mg/dL (7.8-10.44); Carbon Dioxide 25 mmol/L (23-31); Chloride 104 mmol/L (98-107); Estimated GFR 97; Globulin 3.2 g/dL (2.4-3.5); Glucose 156 mg/dL (80-115); Potassium 4.3 mmol/L (3.5-5.1); Protein, Total 6.6 g/dL (5.8-8.1); Sodium 138 mmol/L (136-145)
[2023-11-27 11:03] LABS: Troponin I Less than 0.010 ng/mL (< 0.028)
[2023-11-27] MEDS ORDERED: Ipratropium/Albuterol 3 ML NEB NEB PRN (12:33)
[2023-11-27 13:10] LABS: Influenza A by NAA Not Detected (NotDetected); Influenza B by NAA Not Detected (NotDetected); SARS-CoV-2 NAA Rapid Test Not Detected (NotDetected)
[2023-11-27] MEDS: Furosemide 20 MG (2 mL) VIAL SLOW IVP SCH (15:41)
[2023-11-27] MEDS: predniSONE 20 MG TAB PO SCH (15:44)
[2023-11-27 16:02] VITALS: BMI 32.8
[2023-11-27] MEDS: Budesonide 0.5 MG/2 ML NEB INH SCH (16:53)
[2023-11-27] MEDS: Ipratropium/Albuterol 3 ML NEB NEB SCH (19:30)
[2023-11-27] MEDS: Famotidine 20 MG TAB PO SCH (21:14)
[2023-11-27] MEDS: Losartan 50 MG TAB PO SCH (21:14)
[2023-11-27] MEDS: buPROPion 75 MG TAB PO SCH (21:47)
[2023-11-28] MEDS: Guaifenesin DM 100-10/5 ML UDCUP PO PRN (00:32)
[2023-11-28 04:06] LABS: Anion Gap 12 mmol/L (10-20); BUN (Urea Nitrogen) 13 mg/dL (9.8-20.1); Calc. Creatinine Clearance 98 mL/min (70-130); Calcium 9.1 mg/dL (7.8-10.44); Carbon Dioxide 28 mmol/L (23-31); Chloride 103 mmol/L (98-107); Estimated GFR 86; Glucose 134 mg/dL (80-115); Sodium 139 mmol/L (136-145)
[2023-11-28 04:55] LABS: #Basophils 0.02 10x3/uL (0.0-0.2); #Neutrophils 12.74 10x3/uL (1.5-8.4); %Basophils 0.1 % (0.0-2.0); %Lymphocytes 9.4 % (18.0-47.0); %Monocytes 5.3 % (0.0-10.0); %Neutrophils 84.5 % (40.0-75.0); Hematocrit 38.9 % (34.9-44.5); Mean Corpuscular HGB CONC 33.4 g/dL (32.0-36.0); Mean Corpuscular Hemoglobin 34.6 pg (27.0-33.0); Mean Corpuscular Volume 103.5 fl (81.6-98.3); Mean Platelet Volume 10.9 fl (7.4-10.4); Platelet Count 217 10x3/uL (150-450); RBC Distribution Width 13.9 % (11.5-14.5); Red Blood Cell (RBC) Count 3.76 10x6/uL (3.90-5.03); White Blood Cell (WBC) Count 15.1 10x3/uL (3.5-10.5)
[2023-11-28] MEDS: Budesonide 0.5 MG/2 ML NEB INH SCH (07:45)
[2023-11-28] MEDS: predniSONE 20 MG TAB PO SCH (08:20)
[2023-11-28] MEDS: Allopurinol 100 MG TAB PO SCH (08:20)
[2023-11-28] MEDS: Enoxaparin 40 MG (0.4 mL) SYRINGE SC SCH (08:20)
[2023-11-28] MEDS: Acetaminophen 325 MG TAB PO PRN (08:21)
[2023-11-28] MEDS: cefTRIAXone\\ROCEPHIN 1 GM in Sodium Chloride 0.9% 100 ML IVPB SCH (10:11)
[2023-11-28] MEDS: Furosemide 20 MG (2 mL) VIAL SLOW IVP SCH (10:11)
[2023-11-28] MEDS: Azithromycin 500 MG in Sodium Chloride 0.9% 250 ML 250 ML IVPB SCH (14:29)
[2023-11-29 04:07] LABS: Anion Gap 11 mmol/L (10-20); BUN (Urea Nitrogen) 15 mg/dL (9.8-20.1); Calc. Creatinine Clearance 118 mL/min (70-130); Calcium 9.1 mg/dL (7.8-10.44); Carbon Dioxide 30 mmol/L (23-31); Chloride 104 mmol/L (98-107); Estimated GFR 99; Glucose 84 mg/dL (80-115); Potassium 3.8 mmol/L (3.5-5.1); Sodium 141 mmol/L (136-145)
[2023-11-29 04:30] LABS: #Basophils 0.04 10x3/uL (0.0-0.2); #Eosinphils 0.02 10x3/uL (0.0-0.5); #Monocytes 1.28 10x3/uL (0.0-1.1); #Neutrophils 9.73 10x3/uL (1.5-8.4); %Basophils 0.3 % (0.0-2.0); %Eosinophils 0.1 % (0.0-6.0); %Lymphocytes 24.5 % (18.0-47.0); %Monocytes 8.6 % (0.0-10.0); %Neutrophils 65.7 % (40.0-75.0); Hematocrit 38.4 % (34.9-44.5); Hemoglobin 12.7 g/dL (12.0-15.5); Mean Corpuscular HGB CONC 33.1 g/dL (32.0-36.0); Mean Corpuscular Hemoglobin 34.4 pg (27.0-33.0); Mean Corpuscular Volume 104.1 fl (81.6-98.3); Mean Platelet Volume 10.6 fl (7.4-10.4); Platelet Count 232 10x3/uL (150-450); RBC Distribution Width 13.9 % (11.5-14.5); Red Blood Cell (RBC) Count 3.69 10x6/uL (3.90-5.03); White Blood Cell (WBC) Count 14.8 10x3/uL (3.5-10.5)
[2023-11-29] MEDS: methylPREDNISolone Sod Succ/PF 125 MG/2 ML VIAL IVP SCH (14:16)
[2023-11-30 03:50] LABS: #Basophils 0.04 10x3/uL (0.0-0.2); #Neutrophils 7.43 10x3/uL (1.5-8.4); %Basophils 0.4 % (0.0-2.0); %Lymphocytes 18.6 % (18.0-47.0); %Monocytes 8.6 % (0.0-10.0); %Neutrophils 70.6 % (40.0-75.0); Hematocrit 37.8 % (34.9-44.5); Hemoglobin 12.4 g/dL (12.0-15.5); Mean Corpuscular HGB CONC 32.8 g/dL (32.0-36.0); Mean Corpuscular Hemoglobin 34.1 pg (27.0-33.0); Mean Corpuscular Volume 103.8 fl (81.6-98.3); Mean Platelet Volume 10.1 fl (7.4-10.4); Platelet Count 268 10x3/uL (150-450); RBC Distribution Width 13.6 % (11.5-14.5); Red Blood Cell (RBC) Count 3.64 10x6/uL (3.90-5.03); White Blood Cell (WBC) Count 10.5 10x3/uL (3.5-10.5)
[2023-11-30 04:02] LABS: Anion Gap 12 mmol/L (10-20); BUN (Urea Nitrogen) 16 mg/dL (9.8-20.1); Calc. Creatinine Clearance 108 mL/min (70-130); Calcium 9.2 mg/dL (7.8-10.44); Carbon Dioxide 31 mmol/L (23-31); Chloride 100 mmol/L (98-107); Estimated GFR 97; Glucose 223 mg/dL (80-115); Potassium 4.4 mmol/L (3.5-5.1); Sodium 139 mmol/L (136-145)
[2023-11-30] MEDS: methylPREDNISolone Sod Succ/PF 125 MG/2 ML VIAL IVP SCH (09:57)
[2023-11-30] MEDS: Senokot S 8.6-50 MG TAB PO SCH ×2 (10:15→21:12)
[2023-11-30] MEDS ORDERED: Mometasone 100 MCG/Formoterol 5 MCG 120 PUFF INHALER INH SCH (18:30)
[2023-11-30] MEDS: Mometasone/Formoterol 60 PUFF AER INH SCH (19:30)
[2023-12-01 04:07] LABS: Hematocrit 41.2 % (34.9-44.5); Hemoglobin 13.3 g/dL (12.0-15.5); MDiff Complete? YES; Mean Corpuscular HGB CONC 32.3 g/dL (32.0-36.0); Mean Corpuscular Hemoglobin 33.8 pg (27.0-33.0); Mean Corpuscular Volume 104.6 fl (81.6-98.3); Platelet Count 278 10x3/uL (150-450); RBC Distribution Width 13.4 % (11.5-14.5); Red Blood Cell (RBC) Count 3.94 10x6/uL (3.90-5.03); White Blood Cell (WBC) Count 12.5 10x3/uL (3.5-10.5)
[2023-12-01 04:10] LABS: Anion Gap 13 mmol/L (10-20); BUN (Urea Nitrogen) 17 mg/dL (9.8-20.1); Calc. Creatinine Clearance 106 mL/min (70-130); Calcium 9.9 mg/dL (7.8-10.44); Carbon Dioxide 34 mmol/L (23-31); Chloride 96 mmol/L (98-107); Estimated GFR 95; Glucose 94 mg/dL (80-115); Potassium 4.6 mmol/L (3.5-5.1); Sodium 138 mmol/L (136-145)
[2023-12-01 04:39] LABS: Band 3 % (5-11); Lymphocytes 30 % (21-51); Monocytes 8 % (0-10); Neutrophil 59 % (42-75)
[2023-12-01 04:44] LABS: Macrocytosis SLIGHT = 6-15 cells (100X) (0-5/hpf); Ovalocytes SLIGHT = 2-5 cells (100X) (0-1/hpf); Platelet Adequacy Comment Appears Adequate
[2023-12-01] MEDS: predniSONE 20 MG TAB PO SCH (09:21)
[2023-12-01 12:55] VITALS: BP 134/83; TEMP 98.6
== END 2023-12-01 16:15 | disposition home or self-care (01) | DRG 191 ==
LOC: CSHERS 09:24 → CSHERHOLD 11:53 → CSHTELE 14:27
PROVIDERS: ADMIT Internal Medicine; ATTEND Family Medicine
DX: J44.1 Chronic obstructive pulmonary disease with (acute) exacerbation (principal); I50.32 Chronic diastolic (congestive) heart failure; I11.0 Hypertensive heart disease with heart failure; Z88.5 Allergy status to narcotic agent; Z88.8 Allergy status to other drugs, medicaments and biological substances; Z88.2 Allergy status to sulfonamides; Z88.0 Allergy status to penicillin; Z79.899 Other long term (current) drug therapy; Z90.710 Acquired absence of both cervix and uterus; Z87.891 Personal history of nicotine dependence; J22 Unspecified acute lower respiratory infection
CPT/HCPCS: 36415; 36416; 71045; 80048; 80053; 83605; 83880; 84145; 84484; 85025; 87040; 87633; 93005; 94640; 94664; 94760; 94762; 96365; 96366; 96375; J0456; J0696; J1650; J1940; J2930; J3490; J7050; J7512; J7620; J7626